=== PATIENT | male | born 1965 | race Caucasian/White ===

== ENCOUNTER → 2017-11-20 | Outpatient (CLI) | payer OTHER ==
[~2017-11-20] MED LIST: ALL DAY ALLERGY10 M3 PO; AMBISOME IV; ASPIR 8181 MG PO; ATORVASTATIN CA20 MG PO; AZITHROMYCIN 2250 MG PO; BACTRIM DS TAB1 EACH PO; CEFDINIR300 MG PO; CENTRUM SILVER1 EAC4 PO; CIPROFLOXACIN500 M1 PO; DIFLUCAN200 MG PO; FENOFIBRATE134 MG PO; FLONASE 0.05%50 MCG NASAL; FLUCYTOSINE PO; FLUOCINONI0.05 %/30 TOP; GENVOYA TABLET1 EACH PO; HEARTBURN TREAT15 MG PO; HYDROCODON-ACE1 EAC8 PO; IMDUR 30 MG TAB30 M1 PO; ISOSORBIDE DINI30 MG PO; K-DUR 20 MEQ T20 MEQ PO; KETOCONAZOLE10 GM MC; LEVOTHYROXINE0.05 MG PO; LOPRESSOR50 PO; MAG DELAY64 MG PO; NORCO 5-325 TA1 EACH PO; PREVACID 24HR15 MG PO; REGLAN 10 MG TA10 MG PO; TOPROL XL50 MG PO; VALACYCLOVIR HCL1 GM PO; VALACYCLOVIR1000 MG PO; VITAMIN D3400 UNIT PO; ZOFRAN4 MG PO; ZYRTEC10 M4 PO; [UNRECOGNIZED DRUG - OTHER] PO
== END ==
LOC: RAD 12:08
DX: J45.901 Unspecified asthma with (acute) exacerbation (principal)

== ENCOUNTER → 2018-08-17 | Outpatient (CLI) | payer OTHER | LOC: MRI 07-28 10:46 | DX: M47.896 Other spondylosis, lumbar region (principal); M48.061 Spinal stenosis, lumbar region without neurogenic claudication; B20 Human immunodeficiency virus [HIV] disease ==

== ENCOUNTER → 2021-04-15 | Outpatient (CLI) | payer OTHER | LOC: CAT 09:00 | PROVIDERS: ATTEND Specialist | DX: H93.13 Tinnitus, bilateral (principal) ==